=== PATIENT | male | born 1945 | race African-American/Black ===

== ENCOUNTER 2019-09-27 10:59 | Inpatient (IN) | payer MEDICARE, BC ==
[~2019-09-27] VITALS: Ht 198.1 cm; Wt 134.3 kg
[2019-09-27 13:11] LABS: BASOPHILS % 0.7 % (0.0-2.0); EOSINOPHILS % 1.6 % (0.0-5.0); HEMATOCRIT. 32.8 % (42.0-52.0); LYMPHOCYTES % 12.2 % (20.0-50.0); MEAN CORPUSCULAR HEMOGLOBIN 28.9 pg (28.0-32.0); MEAN CORPUSCULAR VOLUME 86.5 fL (80.0-94.0); NEUTROPHILS % 80.5 % (40.0-76.0); PLATELET 88 x1000/uL (130-400); RED CELL DISTRIBUTION WIDTH 13.3 % (11.6-14.6)
[2019-09-27 13:17] LABS: INR 1.1; PROTHROMBIN TIME 10.9 sec (9.6-11.0)
[2019-09-27 13:18] LABS: CHLORIDE 108 mEq/L (98-107)
[2019-09-27] MEDS ORDERED: IOHEXOL-300 100 ML BOTTLE ONE (16:02)
[2019-09-27] MEDS ORDERED: ACETAMINOPHEN 650MG SUPP PR PRN (17:15)
[2019-09-27] MEDS ORDERED: ONDANSETRON HCL 4MG/2ML INJ IV PRN (17:15)
[2019-09-27 19:39] LABS: HEMATOCRIT 30.3 % (42.0-52.0); HEMOGLOBIN 10.3 g/dL (14.0-18.0); MEAN CORPUSCULAR HEMOGLOBIN 29.4 pg (28.0-32.0); MEAN CORPUSCULAR VOLUME 86.2 fL (80.0-94.0); PLATELET 87 x1000/uL (130-400); RED BLOOD CELL COUNT 3.51 mill/uL (4.7-6.1); RED CELL DISTRIBUTION WIDTH 13.5 % (11.6-14.6)
[2019-09-27] MEDS ORDERED: DEXT 5%/0.45% NACL KCL 40MEQ/L 1,000 ML IV ONE (20:00)
[2019-09-27 21:40] VITALS: BP 106/61
[2019-09-27] MEDS ORDERED: BRIM5DRO EACHEYE (22:59)
[2019-09-27] MEDS ORDERED: HYDR25TA PO (22:59)
[2019-09-27] MEDS ORDERED: ALBU2.5V13 IH (22:59)
[2019-09-27] MEDS ORDERED: TAMS-11 MT (22:59)
[2019-09-27] MEDS ORDERED: POTA20TA12 PO (22:59)
[2019-09-27] MEDS ORDERED: OMEP20TA2 PO (22:59)
[2019-09-27] MEDS ORDERED: TRAV2.5D RIGHTEYE (22:59)
[2019-09-27] MEDS ORDERED: FELO10TA45 PO (22:59)
[2019-09-27] MEDS ORDERED: ALBU90AE IH (22:59)
[2019-09-27] MEDS ORDERED: TIOT4MIS3 IH (22:59)
[2019-09-27] MEDS ORDERED: ATEN-42 PO (22:59)
[2019-09-27] MEDS ORDERED: LOSA100T32 PO (22:59)
[2019-09-28] VITALS (8 sets, daily range): BP systolic 91–134; BP diastolic 50–88
[2019-09-28] MEDS ORDERED: MEDICATION NOT ON FORMULARY EA (Albuterol Sulfate (Proair Respiclick) 90 MCG) IH SCH (00:30)
[2019-09-28] MEDS ORDERED: [UNRECOGNIZED DRUG - OTHER] IH SCH (00:30)
[2019-09-28] MEDS ORDERED: ALBUTEROL (0.083%) 2.5MG/3ML NEB INH PRN (00:30)
[2019-09-28] MEDS ORDERED: OLODATEROL HCL IH SCH (00:30)
[2019-09-28] MEDS ORDERED: TIOTROPIUM BR IH SCH (00:30)
[2019-09-28] MEDS ORDERED: ALBUTEROL (0.083%) 2.5MG/3ML NEB HHN PRN (00:45)
[2019-09-28 00:54] LABS: HEMATOCRIT 27.2 % (42.0-52.0); HEMOGLOBIN 9.6 g/dL (14.0-18.0); MEAN CORPUSCULAR VOLUME 87.4 fL (80.0-94.0); PLATELET 77 x1000/uL (130-400); RED BLOOD CELL COUNT 3.11 mill/uL (4.7-6.1); RED CELL DISTRIBUTION WIDTH 13.4 % (11.6-14.6)
[2019-09-28 06:13] LABS: HEMATOCRIT 30.1 % (42.0-52.0); HEMOGLOBIN 10.2 g/dL (14.0-18.0); MEAN CORPUSCULAR HEMOGLOBIN 29.3 pg (28.0-32.0); MEAN CORPUSCULAR VOLUME 86.8 fL (80.0-94.0); PLATELET 91 x1000/uL (130-400); RED BLOOD CELL COUNT 3.47 mill/uL (4.7-6.1); RED CELL DISTRIBUTION WIDTH 13.6 % (11.6-14.6)
[2019-09-28] MEDS ORDERED: MEDICATION NOT ON FORMULARY EA (Brimonidine Tartrate (Alphagan P) 1 DROP) EACHEYE SCH (09:00)
[2019-09-28] MEDS: BRIMONIDINE 0.2% OPHTH DROPS 5ML EACHEYE SCH ×2 (10:27→18:16)
[2019-09-28 11:55] LABS: HEMATOCRIT 28.4 % (42.0-52.0); HEMOGLOBIN 9.6 g/dL (14.0-18.0); MEAN CORPUSCULAR HEMOGLOBIN 29.3 pg (28.0-32.0); MEAN CORPUSCULAR VOLUME 86.6 fL (80.0-94.0); PLATELET 84 x1000/uL (130-400); RED BLOOD CELL COUNT 3.28 mill/uL (4.7-6.1); RED CELL DISTRIBUTION WIDTH 13.5 % (11.6-14.6)
[2019-09-28] MEDS ORDERED: SORBITOL 70% SOLN 30ML PO NR ×2 (16:00→18:00)
[2019-09-28 19:53] LABS: HEMATOCRIT 31.2 % (42.0-52.0); HEMOGLOBIN 10.6 g/dL (14.0-18.0); MEAN CORPUSCULAR HEMOGLOBIN 29.4 pg (28.0-32.0); MEAN CORPUSCULAR VOLUME 86.6 fL (80.0-94.0); PLATELET 104 x1000/uL (130-400); RED CELL DISTRIBUTION WIDTH 13.5 % (11.6-14.6)
[2019-09-28 20:29] LABS: CHLORIDE 108 mEq/L (98-107)
[2019-09-28] MEDS ORDERED: MEDICATION NOT ON FORMULARY EA (Travoprost (Travatan Z) 1 DROP) RIGHTEYE SCH (21:00)
[2019-09-28] MEDS ORDERED: SODIUM CHLORIDE 0.9% 500 ML IV ONE ×2 (21:00)
[2019-09-28] MEDS: LATANOPROST 0.005% OPHTH DROPS 2.5ML RIGHTEYE SCH (21:31)
[2019-09-28 22:05] LABS: EOSINOPHILS % 2.1 % (0.0-5.0); HEMATOCRIT. 29.7 % (42.0-52.0); HEMOGLOBIN. 10.1 g/dL (14.0-18.0); LYMPHOCYTES % 20.6 % (20.0-50.0); MEAN CORPUSCULAR HEMOGLOBIN 29.6 pg (28.0-32.0); MEAN CORPUSCULAR VOLUME 87.2 fL (80.0-94.0); MEAN PLATELET VOLUME 12.5 fl (7.4-10.4); MONOCYTES % 7.4 % (2.0-8.0); NEUTROPHILS % 68.9 % (40.0-76.0); PLATELET 102 x1000/uL (130-400); RED BLOOD CELL COUNT 3.41 mill/uL (4.7-6.1); RED CELL DISTRIBUTION WIDTH 13.1 % (11.6-14.6)
[2019-09-29] VITALS: BP 107/52
[2019-09-29] MEDS ORDERED: SORBITOL 70% SOLN 30ML PO NR
[2019-09-29 00:26] LABS: HEMATOCRIT 29.4 % (42.0-52.0); HEMOGLOBIN 10.1 g/dL (14.0-18.0); MEAN CORPUSCULAR HEMOGLOBIN 29.6 pg (28.0-32.0); MEAN CORPUSCULAR VOLUME 86.6 fL (80.0-94.0); PLATELET 100 x1000/uL (130-400); RED CELL DISTRIBUTION WIDTH 13.3 % (11.6-14.6)
[2019-09-29 04:00] VITALS: BP 118/78
[2019-09-29 06:23] LABS: INR 1.1; PARTIAL THROMBOPLASTIN TIME 23.7 sec (23.4-31.0)
[2019-09-29 06:30] LABS: CHLORIDE 114 mEq/L (98-107)
[2019-09-29] MEDS: BRIMONIDINE 0.2% OPHTH DROPS 5ML EACHEYE SCH ×2 (09:17→18:15)
[2019-09-29] MEDS ORDERED: KCL 20MEQ/100ML PREMIX 100 ML IV NR (11:00)
[2019-09-29 12:00] VITALS: BP 122/76
[2019-09-29] MEDS ORDERED: FENTANYL CITRATE/PF 50MCG/ML 2ML VIAL ONE (15:39)
[2019-09-29] MEDS ORDERED: MIDAZOLAM HCL 5 MG/5 ML VIAL ONE (15:39)
[2019-09-29] MEDS ORDERED: MIDAZOLAM HCL 2 MG/2 ML VIAL IV PRN (15:45)
[2019-09-29] MEDS ORDERED: FENTANYL CITRATE/PF 50MCG/ML 2ML VIAL IV PRN (15:46)
[2019-09-29 16:00] VITALS: BP 136/81
[2019-09-29 18:02] LABS: CHLORIDE 113 mEq/L (98-107)
[2019-09-29 20:00] VITALS: BP 120/78
[2019-09-29] MEDS: LATANOPROST 0.005% OPHTH DROPS 2.5ML RIGHTEYE SCH (21:40)
[2019-09-30] VITALS: BP 121/72
[2019-09-30 04:00] VITALS: BP 96/56
[2019-09-30 07:08] LABS: BASOPHILS % 1.1 % (0.0-2.0); EOSINOPHILS % 4.4 % (0.0-5.0); LYMPHOCYTES % 25.6 % (20.0-50.0); MEAN CORPUSCULAR HEMOGLOBIN 29.5 pg (28.0-32.0); MEAN CORPUSCULAR VOLUME 87.2 fL (80.0-94.0); MONOCYTES % 8.7 % (2.0-8.0); NEUTROPHILS % 60.2 % (40.0-76.0); PLATELET 100 x1000/uL (130-400); RED BLOOD CELL COUNT 2.85 mill/uL (4.7-6.1); RED CELL DISTRIBUTION WIDTH 13.4 % (11.6-14.6)
[2019-09-30 07:24] LABS: CHLORIDE 108 mEq/L (98-107)
[2019-09-30 08:00] VITALS: BP 127/80
[2019-09-30 08:20] LABS: HEMATOCRIT. 24.9 % (42.0-52.0); HEMOGLOBIN. 8.4 g/dL (14.0-18.0)
[2019-09-30] MEDS: BRIMONIDINE 0.2% OPHTH DROPS 5ML EACHEYE SCH ×2 (08:46→21:49)
[2019-09-30] MEDS ORDERED: POTASSIUM CHLORIDE 20MEQ TABLET SR PO NR ×2 (10:30→12:30)
[2019-09-30 12:17] VITALS: BP 124/80
[2019-09-30 16:00] VITALS: BP 122/70
[2019-09-30 19:12] LABS: HEMATOCRIT 28.7 % (42.0-52.0); HEMOGLOBIN 9.6 g/dL (14.0-18.0); MEAN CORPUSCULAR HEMOGLOBIN 29.4 pg (28.0-32.0); MEAN CORPUSCULAR VOLUME 88.1 fL (80.0-94.0); PLATELET 121 x1000/uL (130-400); RED BLOOD CELL COUNT 3.26 mill/uL (4.7-6.1); RED CELL DISTRIBUTION WIDTH 13.5 % (11.6-14.6)
[2019-09-30 20:00] VITALS: BP 123/71
[2019-09-30] MEDS: METOPROLOL TARTRATE 25MG TABLET PO SCH (21:49)
[2019-09-30 21:50] LABS: HEMATOCRIT 26.1 % (42.0-52.0); HEMOGLOBIN 8.8 g/dL (14.0-18.0); MEAN CORPUSCULAR HEMOGLOBIN 29.5 pg (28.0-32.0); MEAN CORPUSCULAR VOLUME 87.5 fL (80.0-94.0); PLATELET 108 x1000/uL (130-400); RED BLOOD CELL COUNT 2.98 mill/uL (4.7-6.1); RED CELL DISTRIBUTION WIDTH 13.4 % (11.6-14.6)
[2019-09-30] MEDS: LATANOPROST 0.005% OPHTH DROPS 2.5ML RIGHTEYE SCH (21:58)
[2019-10-01] VITALS: BP 112/66
[2019-10-01 03:07] LABS: HEMATOCRIT 24.5 % (42.0-52.0); HEMOGLOBIN 8.3 g/dL (14.0-18.0); MEAN CORPUSCULAR HEMOGLOBIN 29.5 pg (28.0-32.0); MEAN CORPUSCULAR VOLUME 87.5 fL (80.0-94.0); PLATELET 112 x1000/uL (130-400); RED CELL DISTRIBUTION WIDTH 13.6 % (11.6-14.6)
[2019-10-01 04:00] VITALS: BP 114/65
[2019-10-01 07:30] LABS: BASOPHILS % 0.9 % (0.0-2.0); EOSINOPHILS % 4.8 % (0.0-5.0); HEMATOCRIT. 24.9 % (42.0-52.0); HEMOGLOBIN. 8.5 g/dL (14.0-18.0); MEAN CORPUSCULAR HEMOGLOBIN 29.9 pg (28.0-32.0); MEAN CORPUSCULAR VOLUME 87.4 fL (80.0-94.0); MONOCYTES % 8.5 % (2.0-8.0); NEUTROPHILS % 60.8 % (40.0-76.0); PLATELET 110 x1000/uL (130-400); RED BLOOD CELL COUNT 2.85 mill/uL (4.7-6.1); RED CELL DISTRIBUTION WIDTH 13.7 % (11.6-14.6)
[2019-10-01 07:42] LABS: CHLORIDE 109 mEq/L (98-107)
[2019-10-01 08:00] VITALS: BP 114/48
[2019-10-01] MEDS ORDERED: POTASSIUM CHLORIDE 20MEQ TABLET SR PO NR (08:00)
[2019-10-01] MEDS: METOPROLOL TARTRATE 25MG TABLET PO SCH (08:39)
[2019-10-01] MEDS: BRIMONIDINE 0.2% OPHTH DROPS 5ML EACHEYE SCH ×2 (08:41→18:14)
[2019-10-01] MEDS ORDERED: TRIAMTERENE/HYDROCHLOROTHIAZID 75/50MG TABLET PO SCH (09:00)
[2019-10-01] MEDS ORDERED: LOSARTAN POTASSIUM 50 MG TABLET PO SCH (09:00)
[2019-10-01 12:00] VITALS: BP 122/82
[2019-10-01] MEDS ORDERED: FERROUS SULFATE 325MG TABLET PO SCH (15:00)
[2019-10-01 16:00] VITALS: BP 130/79
[2019-10-01 16:35] VITALS: BP 130/79
== END 2019-10-01 18:45 | disposition home or self-care (01) | DRG 378 ==
LOC: ER 10:59 → 5WST 14:59 → EDBEDREQ 15:02 → ENRESERV 20:30
PROVIDERS: ADMIT Family Medicine Adult Medicine; ATTEND Family Medicine Adult Medicine
PROC: 0DJD8ZZ Inspection of Lower Intestinal Tract, Via Natural or Artificial Opening Endoscopic (ICD-10-PCS; principal; 2019-09-29)
DX: K57.31 Diverticulosis of large intestine without perforation or abscess with bleeding (principal); N17.9 Acute kidney failure, unspecified; I47.1 Supraventricular tachycardia; I10 Essential (primary) hypertension; J45.909 Unspecified asthma, uncomplicated; K21.9 Gastro-esophageal reflux disease without esophagitis; N40.0 Benign prostatic hyperplasia without lower urinary tract symptoms; Z96.641 Presence of right artificial hip joint; D64.9 Anemia, unspecified; D69.6 Thrombocytopenia, unspecified; E87.6 Hypokalemia; K63.5 Polyp of colon; K64.8 Other hemorrhoids; N28.1 Cyst of kidney, acquired; G47.33 Obstructive sleep apnea (adult) (pediatric); N28.89 Other specified disorders of kidney and ureter; M10.9 Gout, unspecified; Z88.5 Allergy status to narcotic agent; Z87.19 Personal history of other diseases of the digestive system; Z82.49 Family history of ischemic heart disease and other diseases of the circulatory system
CPT/HCPCS: 36415; 74177; 76770; 80048; 80053; 82270; 82962; 83735; 85025; 85027; 93005; 93306; 99285; C1893; J2250; J3010; J3480; J7040; Q9967

== ENCOUNTER 2022-07-27 07:35 | Inpatient (IN) | payer MEDICARE ==
[~2022-07-27] VITALS: Ht 200.7 cm; Wt 127.0 kg
[~2022-07-27 07:35] MED LIST: ALBU2.5V13 IH; ALBU90AE IH; BRIM5DRO EACHEYE; LOSA100T32 PO; OMEP20TA23 PO; TAMS-11 MT; TIOT4MIS3 IH; TRAV2.5D9 RIGHTEYE
[2022-07-27] MEDS ORDERED: FENTANYL CITRATE/PF 50MCG/ML 2ML VIAL ONE (12:21)
[2022-07-27] MEDS ORDERED: ROCURONIUM BROMIDE 10MG/ML VIAL 5ML IV ONE (12:22)
[2022-07-27 12:23] LABS: HEMATOCRIT 38.8 % (42.0-52.0); HEMOGLOBIN 13.1 g/dL (14.0-18.0); MEAN CORPUSCULAR HEMOGLOBIN 29.3 pg (28.0-32.0); MEAN CORPUSCULAR VOLUME 86.9 fL (80.0-94.0); PLATELET 112 x1000/uL (130-400); RED BLOOD CELL COUNT 4.47 mill/uL (4.7-6.1); RED CELL DISTRIBUTION WIDTH 13.7 % (11.6-14.6)
[2022-07-27 12:31] LABS: CHLORIDE 104 mEq/L (98-107)
[2022-07-27 12:36] LABS: PARTIAL THROMBOPLASTIN TIME 27.3 sec (23.4-31.0)
[2022-07-27] MEDS ORDERED: TRIA1TAB92 MT (12:46)
[2022-07-27] MEDS ORDERED: ICOS1CAP MT (12:46)
[2022-07-27] MEDS ORDERED: GLYCOPYRROLATE 0.2 MG/ML 2ML VIAL ONE (13:12)
[2022-07-27] MEDS ORDERED: PROPOFOL 200MG/20ML VIAL IV ONE (13:13)
[2022-07-27] MEDS ORDERED: LIDOCAINE HCL 1% 20ML VIAL (Pyxis) INJ ONE (13:27)
[2022-07-27] MEDS ORDERED: IODIXANOL 320MG/ML 100 ML BOTTLE IV ONE (13:34)
[2022-07-27] MEDS ORDERED: EPHEDRINE SULFATE 50MG/ML VIAL ONE ×2 (13:51→13:53)
[2022-07-27] MEDS ORDERED: ALBUTEROL (0.083%) 2.5MG/3ML NEB INH PRN (16:00)
[2022-07-27] MEDS ORDERED: HYDROCODONE/ACETAMINOPHEN 5/325MG TABLET PO PRN (16:00)
[2022-07-27] MEDS ORDERED: NALOXONE HCL 0.4MG/ML VIAL IV PRN (16:30)
[2022-07-27 17:38] VITALS: BP 155/95
[2022-07-27 17:53] VITALS: BP 155/95
[2022-07-27] MEDS ORDERED: LATA2.5D14 RIGHTEYE (18:10)
[2022-07-27] MEDS ORDERED: ALBU18HF2 IH (18:12)
[2022-07-27 20:00] VITALS: BP 149/83
[2022-07-27] MEDS ORDERED: LOSARTAN POTASSIUM 100 MG TABLET PO SCH (21:00)
[2022-07-27 22:35] VITALS: BP 144/88
[2022-07-27] MEDS: AMIODARONE HCL 200 MG TABLET PO SCH (23:11)
[2022-07-28] VITALS (9 sets, daily range): BP systolic 123–157; BP diastolic 72–90
[2022-07-28 06:37] LABS: BASOPHILS % 0.7 % (0.0-2.0); EOSINOPHILS % 3.6 % (0.0-5.0); HEMATOCRIT. 36.4 % (42.0-52.0); HEMOGLOBIN. 12.2 g/dL (14.0-18.0); LYMPHOCYTES % 15.3 % (20.0-50.0); MEAN CORPUSCULAR HEMOGLOBIN 29.3 pg (28.0-32.0); MEAN PLATELET VOLUME 11.4 fl (7.4-10.4); MONOCYTES % 9.8 % (2.0-8.0); NEUTROPHILS % 70.6 % (40.0-76.0); PLATELET 98 x1000/uL (130-400); RED BLOOD CELL COUNT 4.18 mill/uL (4.7-6.1); RED CELL DISTRIBUTION WIDTH 13.8 % (11.6-14.6)
[2022-07-28] MEDS ORDERED: OMEPRAZOLE 20MG CAPSULE EXTENDED RELEASE PO SCH (06:50)
[2022-07-28 06:55] LABS: CHLORIDE 103 mEq/L (98-107)
[2022-07-28] MEDS ORDERED: TRIAMTERENE/HCTZ 37.5/25MG TABLET PO SCH (08:50)
[2022-07-28] MEDS: AMIODARONE HCL 200 MG TABLET PO SCH (08:54)
[2022-07-28] MEDS ORDERED: TAMSULOSIN HCL 0.4MG SR CAPSULE PO SCH (09:00)
== END 2022-07-28 13:00 | disposition home or self-care (01) | DRG 243 ==
LOC: CCL 07:35 → 3WST 18:26
PROVIDERS: ADMIT Internal Medicine Clinical Cardiac Electrophysiology; ATTEND Internal Medicine Clinical Cardiac Electrophysiology
PROC: 0JH606Z Insertion of Pacemaker, Dual Chamber into Chest Subcutaneous Tissue and Fascia, Open Approach (ICD-10-PCS; principal; 2022-07-27)
PROC: 02H63JZ Insertion of Pacemaker Lead into Right Atrium, Percutaneous Approach (ICD-10-PCS; 2022-07-27)
PROC: 02HK3JZ Insertion of Pacemaker Lead into Right Ventricle, Percutaneous Approach (ICD-10-PCS; 2022-07-27)
PROC: B517YZZ Fluoroscopy of Left Subclavian Vein using Other Contrast (ICD-10-PCS; 2022-07-27)
DX: I44.1 Atrioventricular block, second degree (principal); Z68.41 Body mass index [BMI] 40.0-44.9, adult; E66.01 Morbid (severe) obesity due to excess calories; D69.6 Thrombocytopenia, unspecified; I11.9 Hypertensive heart disease without heart failure; E78.1 Pure hyperglyceridemia; I48.0 Paroxysmal atrial fibrillation; E78.5 Hyperlipidemia, unspecified; J45.909 Unspecified asthma, uncomplicated; N40.0 Benign prostatic hyperplasia without lower urinary tract symptoms; Z79.899 Other long term (current) drug therapy; Z80.3 Family history of malignant neoplasm of breast; Z80.7 Family history of other malignant neoplasms of lymphoid, hematopoietic and related tissues; Z82.3 Family history of stroke; Z83.3 Family history of diabetes mellitus; Z96.641 Presence of right artificial hip joint
CPT/HCPCS: 33208; 36415; 71045; 75820; 80048; 85025; 85027; 93005; A4565; C1769; C1785; C1893; C1898; J2704; J3010; J3490; Q9967

== ENCOUNTER → 2022-11-01 | Outpatient (CLI) | payer MEDICARE ==
[~2022-11-01] MED LIST changes: +ALBU18HF2 IH; +ICOS1CAP MT; +LATA2.5D14 RIGHTEYE; +TRIA1TAB92 MT
== END | disposition home or self-care (01) ==
LOC: RAD 13:20
PROVIDERS: ATTEND Internal Medicine Clinical Cardiac Electrophysiology
DX: I44.1 Atrioventricular block, second degree (principal); I10 Essential (primary) hypertension; I48.0 Paroxysmal atrial fibrillation; R55 Syncope and collapse; Z45.018 Encounter for adjustment and management of other part of cardiac pacemaker
CPT/HCPCS: 71046

== ENCOUNTER 2022-11-14 05:59 | Inpatient (IN) | payer MEDICARE ==
[~2022-11-14] VITALS: Ht 198.1 cm; Wt 132.0 kg
[2022-11-14] MEDS ORDERED: GENTAMICIN/NS IRRIGATION 500 ML IR SCH (07:15)
[2022-11-14] MEDS ORDERED: ICOS1CAP PO (08:03)
[2022-11-14] MEDS ORDERED: BRIM5DRO EACHEYE (08:03)
[2022-11-14] MEDS ORDERED: POTA-205 MT (08:06)
[2022-11-14 08:24] LABS: INR 1.1; PARTIAL THROMBOPLASTIN TIME 27.6 sec (23.4-31.0); PROTHROMBIN TIME 11.3 sec (9.6-11.0)
[2022-11-14] MEDS ORDERED: HEPARIN 1,000 UNITS PREMIX 0 ML IV ONE (08:27)
[2022-11-14] MEDS ORDERED: LIDOCAINE HCL 1% 50ML VIAL (10MG/ML) ONE (08:27)
[2022-11-14] MEDS ORDERED: GENTAMICIN SULF 40MG/ML 2ML VIAL ONE (08:29)
[2022-11-14 08:49] LABS: BASOPHILS % 1.2 % (0.0-2.0); EOSINOPHILS % 2.2 % (0.0-5.0); HEMOGLOBIN. 14.2 g/dL (14.0-18.0); LYMPHOCYTES % 21.9 % (20.0-50.0); MEAN CORPUSCULAR HEMOGLOBIN 27.9 pg (28.0-32.0); MEAN CORPUSCULAR VOLUME 84.8 fL (80.0-94.0); MEAN PLATELET VOLUME 11.6 fl (7.4-10.4); MONOCYTES % 8.6 % (2.0-8.0); NEUTROPHILS % 66.1 % (40.0-76.0); PLATELET 91 x1000/uL (130-400); RED BLOOD CELL COUNT 5.08 mill/uL (4.7-6.1); RED CELL DISTRIBUTION WIDTH 14.9 % (11.6-14.6)
[2022-11-14] MEDS ORDERED: FENTANYL CITRATE/PF 50MCG/ML 2ML VIAL ONE ×2 (08:54→09:30)
[2022-11-14] MEDS ORDERED: MIDAZOLAM HCL 2 MG/2 ML VIAL ONE ×2 (08:54→09:30)
[2022-11-14] MEDS ORDERED: PROPOFOL 200MG/20ML VIAL IV ONE (08:54)
[2022-11-14] MEDS ORDERED: LIDOCAINE HCL 1% 10 MG/ML 10ML VIAL ONE (08:54)
[2022-11-14] MEDS ORDERED: LABETALOL 5MG/ML SYR 20 MG/4 ML SYRINGE IV PRN (09:15)
[2022-11-14] MEDS ORDERED: ONDANSETRON HCL 4MG/2ML INJ IV PRN (09:15)
[2022-11-14] MEDS ORDERED: MEPERIDINE HCL/PF 25MG/ML CPJ IV PRN (09:15)
[2022-11-14] MEDS ORDERED: HYDROMORPHONE HCL/PF 2MG/ML CPJ IV PRN (09:15)
[2022-11-14] MEDS ORDERED: IODIXANOL 320MG/ML 100 ML BOTTLE IV ONE (10:20)
[2022-11-14] MEDS ORDERED: HYDROMORPHONE HCL/PF 2MG/ML CPJ ONE (10:52)
[2022-11-14] MEDS ORDERED: ALBUTEROL (0.083%) 2.5MG/3ML NEB INH SCH (12:00)
[2022-11-14] MEDS ORDERED: ALBUTEROL 6.7GM HFA INHALER INH SCH (12:00)
[2022-11-14] MEDS ORDERED: HYDROCODONE/ACETAMINOPHEN 5/325MG TABLET PO PRN (12:00)
[2022-11-14] MEDS ORDERED: NALOXONE HCL 0.4MG/ML VIAL IV PRN (12:45)
[2022-11-14] MEDS ORDERED: ALBUTEROL (0.083%) 2.5MG/3ML NEB INH PRN (14:00)
[2022-11-14 15:13] VITALS: BP 162/95
[2022-11-14 16:00] VITALS: BP 171/99
[2022-11-14] MEDS ORDERED: HYDRALAZINE 20MG/ML VIAL IV NR (17:10)
[2022-11-14 18:22] LABS: HEPATITIS B SURFACE ANTIGEN NEGATIVE
[2022-11-14] MEDS ORDERED: ONDANSETRON HCL 4MG TABLET PO PRN (18:30)
[2022-11-14] MEDS: CEFAZOLIN 1000MG PREMIX 50 ML IV SCH (18:34)
[2022-11-14] MEDS: AMLODIPINE 5MG TABLET PO SCH (18:40)
[2022-11-14 20:00] VITALS: BP 166/96
[2022-11-14] MEDS ORDERED: LATANOPROST 0.005% OPHTH DROPS 2.5ML RIGHTEYE SCH (21:00)
[2022-11-14] MEDS ORDERED: LOSARTAN POTASSIUM 100 MG TABLET PO SCH (21:00)
[2022-11-15] VITALS: BP 152/92
[2022-11-15] MEDS: CEFAZOLIN 1000MG PREMIX 50 ML IV SCH ×2 (01:21→08:59)
[2022-11-15 04:00] VITALS: BP 154/85
[2022-11-15 06:14] LABS: BASOPHILS % 0.6 % (0.0-2.0); EOSINOPHILS % 2.8 % (0.0-5.0); HEMATOCRIT. 41.9 % (42.0-52.0); HEMOGLOBIN. 14.1 g/dL (14.0-18.0); LYMPHOCYTES % 17.2 % (20.0-50.0); MEAN CORPUSCULAR HEMOGLOBIN 28.5 pg (28.0-32.0); MEAN CORPUSCULAR VOLUME 84.7 fL (80.0-94.0); MEAN PLATELET VOLUME 11.8 fl (7.4-10.4); MONOCYTES % 9.5 % (2.0-8.0); NEUTROPHILS % 69.9 % (40.0-76.0); PLATELET 98 x1000/uL (130-400); RED BLOOD CELL COUNT 4.94 mill/uL (4.7-6.1)
[2022-11-15 06:19] LABS: CHLORIDE 104 mEq/L (98-107)
[2022-11-15] MEDS ORDERED: OMEPRAZOLE 20MG CAPSULE EXTENDED RELEASE PO SCH (06:50)
[2022-11-15 08:00] VITALS: BP 149/87
[2022-11-15] MEDS: AMLODIPINE 5MG TABLET PO SCH (08:58)
[2022-11-15] MEDS ORDERED: TRIAMTERENE/HCTZ 37.5/25MG TABLET PO SCH (09:00)
[2022-11-15] MEDS ORDERED: POTASSIUM CHLORIDE 20MEQ TABLET SR PO NR (09:00)
[2022-11-15] MEDS ORDERED: TAMSULOSIN HCL 0.4MG SR CAPSULE PO SCH (09:00)
[2022-11-15] MEDS ORDERED: POTASSIUM CHLORIDE 20MEQ TABLET SR PO SCH (09:00)
[2022-11-15] MEDS ORDERED: HYDRALAZINE HCL 50MG TABLET PO SCH (10:30)
[2022-11-15 11:38] VITALS: BP 154/85
[2022-11-15 12:05] VITALS: BP 118/84
== END 2022-11-15 11:30 | disposition home or self-care (01) | DRG 262 ==
LOC: CCL 05:59 → 3WST 15:00
PROVIDERS: ADMIT Specialist; ATTEND Specialist
PROC: 02WA3MZ Revision of Cardiac Lead in Heart, Percutaneous Approach (ICD-10-PCS; principal; 2022-11-14)
DX: T82.120A Displacement of cardiac electrode, initial encounter (principal); I44.1 Atrioventricular block, second degree; E78.5 Hyperlipidemia, unspecified; I10 Essential (primary) hypertension; I48.0 Paroxysmal atrial fibrillation; J42 Unspecified chronic bronchitis; J45.909 Unspecified asthma, uncomplicated; N40.0 Benign prostatic hyperplasia without lower urinary tract symptoms; D69.6 Thrombocytopenia, unspecified; K21.9 Gastro-esophageal reflux disease without esophagitis; Z96.641 Presence of right artificial hip joint; Z79.899 Other long term (current) drug therapy; Z83.3 Family history of diabetes mellitus; Z82.3 Family history of stroke; Z80.7 Family history of other malignant neoplasms of lymphoid, hematopoietic and related tissues; Z80.3 Family history of malignant neoplasm of breast; Y84.9 Medical procedure, unspecified as the cause of abnormal reaction of the patient, or of later complication, without mention of misadventure at the time of the procedure; Y92.89 Other specified places as the place of occurrence of the external cause
CPT/HCPCS: 33215; 33216; 33234; 36415; 71045; 80048; 83735; 85025; 86803; 87340; 93005; A4565; C1769; C1893; J0360; J0690; J1170; J1580; J1644; J2250; J2405; J2704; J3010; J3490; Q0162; Q9967